=== PATIENT | male | born 2000 | race Caucasian/White ===

== ENCOUNTER 2019-05-08 15:13 | Outpatient (CLI) | payer MEDICAID ==
[~2019-05-08] VITALS: Ht 193 cm; Wt 143.0 kg
[2019-05-09] MEDS ORDERED: FEXO180T84 PO (08:55)
[2019-05-09] MEDS ORDERED: IBUP-2185 PO (08:55)
[2019-05-09] MEDS ORDERED: ARIP15TA4 PO (08:55)
[2019-05-09] MEDS ORDERED: DOCU-143 PO (08:55)
[2019-05-09] MEDS ORDERED: ATOR10TA PO (08:55)
[2019-05-09] MEDS ORDERED: CLON0.1T PO (08:55)
[2019-05-09] MEDS ORDERED: AMAN100C18 PO (08:55)
== END 2019-05-09 09:53 | disposition home or self-care (01) ==
LOC: PREOP 15:13
PROVIDERS: ATTEND Dentist General Practice
DX: Z01.818 Encounter for other preprocedural examination (principal)

== ENCOUNTER 2019-05-17 07:00 | Day surgery (SDC) | payer MEDICAID ==
[~2019-05-17] VITALS: Ht 193 cm; Wt 143.0 kg
[2019-05-17] VITALS (11 sets, daily range): BP systolic 105–133; BP diastolic 64–78
[~2019-05-17 07:00] MED LIST: AMAN100C18 PO; ARIP15TA4 PO; ATOR10TA PO; CLON0.1T PO; DEXAMETHASONE 10 MG/ML (DECADRON) 1 ML VIAL ONE; DOCU-143 PO; FEXO180T84 PO; IBUP-2185 PO; MIDAZOLAM 2 MG/2 ML (VERSED) VIAL ONE; ONDANSETRON 4 MG/2 ML (SDV) Z0FRAN ONE; ROCURONIUM 10 MG/ML 5 ML SYRINGE IV ONE; proPOfol 200 MG/20 ML (DIPRIVAN) VIAL IV ONE
[2019-05-17] MEDS ORDERED: MIDAZOLAM SYRUP (VERSED) 10MG/5ML UDC PO ONE ×2 (07:01→08:15)
[2019-05-17] MEDS ORDERED: fentaNYL INJECTION 100 MCG/2 ML AMP ONE (07:01)
[2019-05-17] MEDS ORDERED: LACTATED RINGERS 1,000 ML IV PRN (07:03)
[2019-05-17] MEDS ORDERED: KETAMINE HCL 100 MG/ML 5 ML VIAL IM ONE (07:15)
[2019-05-17] MEDS ORDERED: LIDOCAINE JELLY 2% 6 ML SYRINGE ONE (07:22)
[2019-05-17] MEDS ORDERED: PHENYLEPHRINE 0.25% NASAL SPR (NEO-SYNEPHRINE) 15 ML NS ONE ×2 (07:40→10:15)
[2019-05-17] MEDS ORDERED: SEVOFLURANE (ULTANE) 15 ML INHAL SOLN ONE ×5 (08:53→10:03)
[2019-05-17] MEDS ORDERED: proPOfol 200 MG/20 ML (DIPRIVAN) VIAL IV ONE ×2 (09:05)
[2019-05-17] MEDS ORDERED: morphine INJ 10 MG/ML 1ML (SYR OR VIAL) IVP ONE (10:15)
[2019-05-17] MEDS ORDERED: ONDANSETRON 4 MG/2 ML (SDV) Z0FRAN IVP PRN (10:15)
[2019-05-17] MEDS ORDERED: MEPERIDINE (DEMEROL) INJ 50 MG/ML IVP ONE (10:15)
[2019-05-17] MEDS ORDERED: PROMETHAZINE INJ 25 MG/ML (PHENERGAN) AMP IVP ONE (10:15)
--- NOTE | 2019-05-18 01:06 | OPERATIVE REPORT ---
DATE OF SERVICE: PREOPERATIVE DIAGNOSIS: Dental caries and periodontitis, generalized. OPERATION PERFORMED: Scaling and irrigation four quadrants and repair of numerous carious teeth utilizing composite resin and extraction. DESCRIPTION OF PROCEDURE: The patient was treated on an outpatient basis and following suitable premedication. The patient was taken to the operating room and placed in the supine position upon the table. Anesthesia was induced. Nasotracheal intubation accomplished and general anesthesia administered. A throat pack consisting of one wet 4 x 4 gauze sponge was placed in the oropharynx and maintained in place throughout the procedure. Mouth opening was maintained at all times with simple digital pressure. No mechanical retractors of any kind were utilized. Caries was removed from teeth numbers 18 19, 14, 30 and 7, following which they were repaired with composite resin. Teeth number 31 and 32 were surgically extracted. The entire mouth was thoroughly scaled and irrigated subgingivally. A prophylaxis was performed and comprehensive examination was completed. The patient tolerated this procedure quite nicely and following a thorough debridement of the oral cavity with a copious flow of water, adequate suction and compressed air, the throat pack was removed. The patient was extubated and taken to recovery in quite satisfactory condition. Job ID: [id number] DocumentID: [id number] Dictated Date: 05/17/2019 15:05:19 [employer] General Date: 05/17/2019 23:23:43 Dictated By: EVER HARRISON DDS
--- NOTE | 2019-05-18 06:53 | Anesthesia-General Post-Op ---
General Patient Condition Mental Status/LOC: Same as Preop Cardiovascular: Satisfactory Nausea/Vomiting: Absent Respiratory: Satisfactory Pain: Controlled Complications: Absent Post Op Complications Complications None Follow Up Care/Instructions Patient Instructions None needed. Anesthesia/Patient Condition Patient Condition Patient is doing well, no complaints, stable vital signs, no apparent adverse anesthesia problems. No complications reported per nursing. ROBERT INFANTE CRNA May 18, 2019 06:53
== END 2019-05-17 11:55 | disposition home or self-care (01) ==
LOC: SDC 07:00
PROVIDERS: ATTEND Dentist General Practice
DX: K02.9 Dental caries, unspecified (principal); K29.80 Duodenitis without bleeding; E66.9 Obesity, unspecified; F84.0 Autistic disorder; Z68.38 Body mass index [BMI] 38.0-38.9, adult; Z90.89 Acquired absence of other organs; Z79.899 Other long term (current) drug therapy
CPT/HCPCS: 87081